=== PATIENT | female | born 1985 | race African-American/Black ===

== ENCOUNTER 2019-06-18 07:52 | Emergency (ER) | payer OTHER ==
[~2019-06-18] VITALS: Ht 165.1 cm; Wt 70.0 kg
[2019-06-18 08:04] VITALS: BP 97/54
== END 2019-06-18 13:36 | disposition left against medical advice (07) ==
LOC: EDBD 07:53 → EMS 07:53
DX: S02.5XXA Fracture of tooth (traumatic), initial encounter for closed fracture (principal); Y04.0XXA Assault by unarmed brawl or fight, initial encounter; Y93.89 Activity, other specified; Y92.89 Other specified places as the place of occurrence of the external cause; Y99.8 Other external cause status